=== PATIENT | male | born 1945 | race Caucasian/White ===

== ENCOUNTER → 2017-05-29 | Outpatient (CLI) | payer MEDICARE ==
--- NOTE | 2017-05-29 15:09 | PFTRPT ---
Tech: Sami DE SOUZA RRT Age: 72 Sex: Male Race: Height: 66.00 Inches Weight: 213.00 Lbs BSA: 2.05 Diagnosis: I50.9 PULMONARY FUNCTION REPORT ORDERING PROVIDER: Bradley Hines MD DATE OF SERVICE: 05/29/17 SPIROMETRY: Excellent technical quality. The forced vital capacity is reduced. The FEV1 is in proportion. The obstructive index is, therefore, normal. FLOW VOLUME LOOP: The expiratory limb of the flow volume loop does suggest some nonspecific flow rate limitations. LUNG VOLUMES: The total lung capacity is normal. The residual volume suggests air trapping. DIFFUSION CAPACITY: The diffusion capacity is mildly reduced. It does correct for alveolar volume. HEMOGLOBIN: No hemoglobin is available for correction. AIRWAY MECHANICS: Airways resistance and conductance are normal. IMPRESSION: Suspect a degree of air trapping. Mild diffusion capacity impairment requires clinical correlation. MTDD
== END ==
LOC: M CARPUL 14:35
PROVIDERS: ATTEND Internal Medicine Cardiovascular Disease
DX: I50.9 Heart failure, unspecified (principal)